=== PATIENT | female | born 1980 | race Caucasian/White ===

== ENCOUNTER → 2018-06-14 | Outpatient (CLI) | payer BC ==
--- NOTE | 2018-06-14 14:19 | CPEEG ---
[f rep st] ELECTROENCEPHALOGRAM FOUR-HOUR VIDEO EEG DATE OF STUDY: 06/14/2018 DATE OF INTERPRETATION: 06/14/2018 INTERPRETATION: This 4-hour video EEG recording is normal. There were no potentially epileptogenic abnormalities present during the awake or sleep recordings. The patient did not have any clinical ev ents during the video EEG monitoring session. REPORT: This 4-hour video EEG contains 10 Hz alpha activity to the posterior head regions. There wa s no abnormal activation at rest, photic stimulation or hyperventilation. The background activity wa s normal and symmetric. The patient became drowsy and fell asleep during the study. There was no ab normal activation during drowsiness, sleep, or during times of arousal. The patient did not have any clinical events during the EEG monitoring session. /[id number]/MODL
== END ==
LOC: FCPNEURO 08:24
PROVIDERS: ATTEND Psychiatry & Neurology Neurology
DX: G40.909 Epilepsy, unspecified, not intractable, without status epilepticus (principal)